=== PATIENT | female | born 1955 | race Caucasian/White ===

== ENCOUNTER 2023-12-12 15:10 | Day surgery (SDC) | payer MEDICARE ==
[2023-12-12] MEDS ORDERED: Decadron 4 MG INJ IV ONE (15:11)
[2023-12-12] MEDS ORDERED: XYLOCAINE-MPF 1% 5ML SDV IJ ONE (15:11)
[2023-12-12] MEDS ORDERED: Depo-Medrol 40 MG/ML IM ONE (15:11)
[2023-12-12] MEDS ORDERED: BUPIVACAINE 0.5% VIAL IJ ONE (15:11)
--- NOTE | 2023-12-12 20:56 | XRAY ---
Indication: Bilateral SI joint and bilateral piriformis injection. Intraoperative fluoroscopy provided for 49 seconds. 5 digital spot image submitted for interpretation demonstrates posterior needle tips projecting over left/right SI joints and left/right piriformis. Small amount of contrast injected for all needle tip placement. Correlate with intraoperative findings/report.
--- NOTE | 2023-12-12 20:58 | XRAY ---
49 seconds of fluoroscopy used in surgery for bilateral SIJ injections and bilateral piriformis muscle injections.
== END 2023-12-12 17:30 | disposition home or self-care (01) ==
LOC: SDC-PAIN 15:10
PROVIDERS: ATTEND Psychiatry & Neurology Pain Medicine
DX: M46.1 Sacroiliitis, not elsewhere classified (principal); E11.9 Type 2 diabetes mellitus without complications; M79.18 Myalgia, other site
CPT/HCPCS: 20552; 27096; 72202; 77002; 82947; G0260; J1010; J1100; Q9966